=== PATIENT | female | born 1985 | race Caucasian/White ===

== ENCOUNTER → 2017-10-13 | Outpatient (CLI) | payer OTHER | LOC: M LRY 15:02 | DX: O20.0 Threatened abortion (principal) ==

== ENCOUNTER → 2017-11-06 | Outpatient (CLI) | payer OTHER ==
[2017-11-06 17:46] LABS: BASO % 0.4 % (0.0-1.0); EOS # 0.2 10^3/uL (0.0-0.50); EOS % 2.6 % (0.0-3.0); HEMATOCRIT 40.4 % (36.0-47.0); HEMOGLOBIN 13.8 g/dl (12.0-16.0); IMMATURE GRANULOCYTE % 0.3 % (0-0); LYMPH # 1.9 10^3/uL (1.5-4.5); LYMPH % 26.1 % (24.0-44.0); MEAN CORPUSCULAR HEMOGLOBIN 31.2 pg (27.0-33.0); MEAN CORPUSCULAR HGB CONC 34.2 g/dl (32.0-36.5); MEAN CORPUSCULAR VOLUME 91.2 fl (80.0-96.0); MONO # 0.4 10^3/uL (0.0-0.8); MONO % 5.5 % (0.0-5.0); NEUTROPHILS # 4.8 10^3/uL (1.8-7.7); NEUTROPHILS % 65.1 % (36.0-66.0); PLATELET COUNT, AUTOMATED 243 10^3/uL (150-450); RED BLOOD COUNT 4.43 10^6/uL (4.00-5.40); RED CELL DISTRIBUTION WIDTH 12.4 % (11.5-14.5); WHITE BLOOD COUNT 7.3 10^3/uL (4.0-10.0)
[2017-11-06 21:34] LABS: CHLAMYDIA DNA AMPLIFICATION NEGATIVE (NEGATIVE); GC DNA AMPLIFICATION NEGATIVE (NEGATIVE)
[2017-11-08 11:03] LABS: RUBELLA IgG QUALITATIVE IMMUNE (IMMUNE)
[2017-11-08 11:08] LABS: HBsAg Prenatal NEGATIVE (NEGATIVE)
[2017-11-08 11:33] LABS: HIV 1&2 SCREEN CENTAUR NEGATIVE (NEGATIVE)
[2017-11-08 11:46] LABS: HEPATITIS C VIRUS ABY INDEX < 0.0 INDEX (<0.8)
== END ==
LOC: M SMT 15:05
DX: Z34.81 Encounter for supervision of other normal pregnancy, first trimester (principal); Z3A.09 9 weeks gestation of pregnancy
CPT/HCPCS: 86762

== ENCOUNTER → 2018-02-02 | Outpatient (CLI) | payer OTHER | LOC: M SMT 14:44 | DX: Z34.82 Encounter for supervision of other normal pregnancy, second trimester (principal); Z3A.22 22 weeks gestation of pregnancy | CPT/HCPCS: 76811 ==

== ENCOUNTER → 2018-03-26 | Outpatient (CLI) | payer OTHER ==
[2018-03-26 14:04] LABS: BASO % 0.2 % (0.0-1.0); EOS # 0.2 10^3/uL (0.0-0.50); EOS % 1.3 % (0.0-3.0); HEMATOCRIT 38.9 % (36.0-47.0); IMMATURE GRANULOCYTE % 0.5 % (0-3.0); LYMPH % 16.2 % (24.0-44.0); MEAN CORPUSCULAR HEMOGLOBIN 31.9 pg (27.0-33.0); MEAN CORPUSCULAR HGB CONC 33.4 g/dl (32.0-36.5); MEAN CORPUSCULAR VOLUME 95.3 fl (80.0-96.0); MONO # 0.4 10^3/uL (0.0-0.8); MONO % 3.5 % (0.0-5.0); NEUTROPHILS # 9.6 10^3/uL (1.8-7.7); NEUTROPHILS % 78.3 % (36.0-66.0); PLATELET COUNT, AUTOMATED 239 10^3/uL (150-450); RED BLOOD COUNT 4.08 10^6/uL (4.00-5.40); WHITE BLOOD COUNT 12.2 10^3/uL (4.0-10.0)
[2018-03-26 14:38] LABS: GLUCOSE CHALLENGE TEST 1 HOUR 118 MG/DL (LESS THAN 140)
== END ==
LOC: M SMT 10:04
DX: Z34.82 Encounter for supervision of other normal pregnancy, second trimester (principal); Z3A.00 Weeks of gestation of pregnancy not specified

== ENCOUNTER → 2018-04-12 | Outpatient (CLI) | payer OTHER | LOC: M RAD 11:40 | DX: Z34.82 Encounter for supervision of other normal pregnancy, second trimester (principal) | CPT/HCPCS: 76816 ==

== ENCOUNTER → 2018-05-08 | Outpatient (REF) | payer OTHER | LOC: M LAB REF 17:42 | DX: Z34.83 Encounter for supervision of other normal pregnancy, third trimester (principal) ==

== ENCOUNTER 2018-06-06 11:31 | Inpatient (IN) | payer OTHER ==
[2018-06-06 13:01] LABS: HEMATOCRIT 43.6 % (36.0-47.0); HEMOGLOBIN 14.5 g/dl (12.0-15.5); MEAN CORPUSCULAR HEMOGLOBIN 33.6 pg (27.0-33.0); MEAN CORPUSCULAR HGB CONC 33.3 g/dl (32.0-36.5); MEAN CORPUSCULAR VOLUME 101.2 fl (80.0-96.0); PLATELET COUNT, AUTOMATED 299 10^3/uL (150-450); RED BLOOD COUNT 4.31 10^6/uL (4.00-5.40); RED CELL DISTRIBUTION WIDTH 13.2 % (11.5-14.5); WHITE BLOOD COUNT 14.6 10^3/uL (4.0-10.0)
[2018-06-06 13:31] LABS: HEMATOCRIT 41.7 % (36.0-47.0); HEMOGLOBIN 14.4 g/dl (12.0-15.5); MEAN CORPUSCULAR HEMOGLOBIN 31.9 pg (27.0-33.0); MEAN CORPUSCULAR HGB CONC 34.5 g/dl (32.0-36.5); MEAN CORPUSCULAR VOLUME 92.5 fl (80.0-96.0); PLATELET COUNT, AUTOMATED 282 10^3/uL (150-450); RED BLOOD COUNT 4.51 10^6/uL (4.00-5.40); RED CELL DISTRIBUTION WIDTH 13.2 % (11.5-14.5); WHITE BLOOD COUNT 15.8 10^3/uL (4.0-10.0)
[2018-06-06] MEDS: LACTATED RINGER'S 1000 ML IV (15:15)
[2018-06-06] MEDS ORDERED: FENTANYL 2MCG/ML ROPIVACAINE 0.2% IN 0.9% NACL 200ML IVBAG As Ordered (15:22)
[2018-06-06] MEDS: LR 1,000 ML IV ×3 (16:08→21:33)
[2018-06-06] MEDS ORDERED: EPIDURAL/PCA KEYS XX (16:45)
[2018-06-06] MEDS ORDERED: NALOXONE INJ 0.4 MG/1 ML VIAL (J2310) IV (16:45)
[2018-06-06] MEDS ORDERED: REFRIGERATOR IV KEYS XX (16:45)
[2018-06-06] MEDS ORDERED: ONDANSETRON 4MG/2ML VIAL (J2405) IV (16:45)
[2018-06-06] MEDS ORDERED: EPIDURAL COMMENT XX (16:45)
[2018-06-06] MEDS ORDERED: FENTANYL/ROPIVACAINE/NACL BAG 200 ML EPIDURAL (16:45)
[2018-06-06] MEDS ORDERED: LACTATED RINGER'S 1000 ML IV (16:45)
[2018-06-06] MEDS ORDERED: diphenhydrAMINE INJ 50MG/ML VIAL (J1200) IV (16:45)
[2018-06-06] MEDS: ePHEDrine SULFATE 25 MG/5 ML(5MG/ML) SYRINGE IV ×3 (17:16→18:01)
[2018-06-06] MEDS ORDERED: OXYTOCIN DRIP 30 UNITS in APPROPRIATE DILUENT 1 EA IV (19:45)
[2018-06-06] MEDS: OXYTOCIN DRIP 30 UNITS in APPROPRIATE DILUENT 1 EA IV (23:51)
[2018-06-07] MEDS ORDERED: MEASLES,MUMPS,RUBELLA VACCINE INJ (MMR-II) (90707) SC (00:15)
[2018-06-07] MEDS ORDERED: METHYLERGONOVINE MALEATE 0.2 MG TAB PO (00:15)
[2018-06-07] MEDS ORDERED: ANUSOL HC CREAM 30GM TOP (00:15)
[2018-06-07] MEDS ORDERED: RHOGAM 300 MCG (1500 IU) INJ (J2790) IM (00:15)
[2018-06-07] MEDS ORDERED: DIBUCAINE 1% OINTMENT 30GM TOP (00:15)
[2018-06-07] MEDS ORDERED: PROMETHAZINE 25 MG TAB PO (00:15)
[2018-06-07] MEDS ORDERED: ONDANSETRON 4MG/2ML VIAL (J2405) IV (00:15)
[2018-06-07] MEDS ORDERED: MOM 30ML SUSPENSION UDC PO (00:15)
[2018-06-07] MEDS: PRENATAL VITAMINS CHEWABLE TABLET PO (09:00)
[2018-06-07] MEDS: IBUPROFEN 800 MG TAB PO ×2 (09:36→20:50)
[2018-06-07] MEDS: INFLUENZA QUADRIVALENT PF VACCINE 0.5ML SYRINGE (90686) IM (09:37)
[2018-06-07] MEDS: ACETAMINOPHEN 500 MG TAB PO (15:29)
[2018-06-08] MEDS: IBUPROFEN 800 MG TAB PO (08:00)
[2018-06-08] MEDS: PRENATAL VITAMINS CHEWABLE TABLET PO (08:00)
[2018-06-08] MEDS: DOCUSATE SODIUM 100 MG CAP PO (08:12)
== END 2018-06-08 12:45 | disposition home or self-care (01) | DRG 775 ==
LOC: M LDO 11:31 → M OBS 06-07 02:39 → M LDI 12:21
PROC: 10E0XZZ Delivery of Products of Conception, External Approach (ICD-10-PCS; principal; 2018-06-06)
DX: O80 Encounter for full-term uncomplicated delivery (principal); Z37.0 Single live birth; Z3A.39 39 weeks gestation of pregnancy

== ENCOUNTER → 2018-11-06 | Outpatient (REF) | payer OTHER ==
[~2018-11-06] MED LIST: IBUP-1022 PO; MAPA500T2 PO; PRENTAB9 PO
== END ==
LOC: M LAB REF 09:38
PROVIDERS: ATTEND Obstetrics & Gynecology
DX: Z12.4 Encounter for screening for malignant neoplasm of cervix (principal); Z11.51 Encounter for screening for human papillomavirus (HPV)
CPT/HCPCS: 87624; G0123

== ENCOUNTER → 2019-11-08 | Outpatient (REF) | payer OTHER | LOC: M SFHCWAGY 16:54 | PROVIDERS: ATTEND Obstetrics & Gynecology | DX: Z12.4 Encounter for screening for malignant neoplasm of cervix (principal) | CPT/HCPCS: 87624; G0123 ==

== ENCOUNTER → 2019-12-13 | Outpatient (REF) | payer OTHER | LOC: M SFHCWAGY 17:14 | PROVIDERS: ATTEND Obstetrics & Gynecology | DX: R87.610 Atypical squamous cells of undetermined significance on cytologic smear of cervix (ASC-US) (principal) ==

== ENCOUNTER → 2019-12-30 | Outpatient (REF) | payer OTHER | LOC: M SFHCWAGY 13:48 | PROVIDERS: ATTEND Obstetrics & Gynecology | DX: R87.613 High grade squamous intraepithelial lesion on cytologic smear of cervix (HGSIL) (principal) ==

== ENCOUNTER → 2020-11-10 | Outpatient (REF) | payer OTHER | LOC: M SFHCWAGY 17:17 | PROVIDERS: ATTEND Obstetrics & Gynecology | DX: Z01.419 Encounter for gynecological examination (general) (routine) without abnormal findings (principal) | CPT/HCPCS: 87624; G0123 ==

== ENCOUNTER → 2022-03-09 | Outpatient (CLI) | payer OTHER ==
[2022-03-09 15:52] LABS: BASO % 0.4 % (0.0-1.0); EOS # 0.1 10^3/uL (0.0-0.5); EOS % 1.1 % (0.0-3.0); HEMATOCRIT 38.5 % (36.0-47.0); HEMOGLOBIN 12.9 g/dl (12.0-15.5); LYMPH # 1.6 10^3/uL (1.5-5.0); LYMPH % 20.2 % (24.0-44.0); MEAN CORPUSCULAR HEMOGLOBIN 32.3 pg (27.0-33.0); MEAN CORPUSCULAR HGB CONC 33.5 g/dl (32.0-36.5); MEAN CORPUSCULAR VOLUME 96.5 fl (80.0-96.0); MONO # 0.5 10^3/uL (0.0-0.8); MONO % 5.9 % (2.0-8.0); NEUTROPHILS # 5.8 10^3/uL (1.5-8.5); NEUTROPHILS % 72.2 % (36.0-66.0); PLATELET COUNT, AUTOMATED 219 10^3/uL (150-450); RED BLOOD COUNT 3.99 10^6/uL (4.00-5.40)
[2022-03-09 17:01] LABS: HEPATITIS C VIRUS ABY INDEX 0.1 INDEX (<0.8); HIV 1&2 SCREEN CENTAUR NEGATIVE (NEGATIVE)
[2022-03-10 01:46] LABS: GC DNA AMPLIFICATION NEGATIVE (NEGATIVE)
== END ==
LOC: M PLALAB 13:46
PROVIDERS: ATTEND Obstetrics & Gynecology
DX: Z34.90 Encounter for supervision of normal pregnancy, unspecified, unspecified trimester (principal)

== ENCOUNTER → 2022-03-11 | Outpatient (CLI) | payer OTHER | LOC: M WHC 13:29 | PROVIDERS: ATTEND Obstetrics & Gynecology | DX: O34.41 Maternal care for other abnormalities of cervix, first trimester (principal) ==

== ENCOUNTER → 2022-06-13 | Outpatient (CLI) | payer OTHER | LOC: M WHC 07:03 | PROVIDERS: ATTEND Specialist | DX: Z34.82 Encounter for supervision of other normal pregnancy, second trimester (principal); Z3A.21 21 weeks gestation of pregnancy ==

== ENCOUNTER → 2022-06-30 | Outpatient (CLI) | payer OTHER ==
[2022-06-30 11:01] LABS: HEMATOCRIT 41.5 % (36.0-47.0); HEMOGLOBIN 13.6 g/dl (12.0-15.5); MEAN CORPUSCULAR HEMOGLOBIN 32.1 pg (27.0-33.0); MEAN CORPUSCULAR HGB CONC 32.8 g/dl (32.0-36.5); MEAN CORPUSCULAR VOLUME 97.9 fl (80.0-96.0); PLATELET COUNT, AUTOMATED 198 10^3/uL (150-450); RED BLOOD COUNT 4.24 10^6/uL (4.00-5.40); WHITE BLOOD COUNT 8.9 10^3/uL (4.0-10.0)
[2022-06-30 12:37] LABS: GC DNA AMPLIFICATION NEGATIVE (NEGATIVE)
== END ==
LOC: M PLALAB 07:37
PROVIDERS: ATTEND Specialist
DX: Z34.82 Encounter for supervision of other normal pregnancy, second trimester (principal)

== ENCOUNTER → 2022-07-07 | Outpatient (CLI) | payer OTHER | LOC: M WHC 06:55 | PROVIDERS: ATTEND Obstetrics & Gynecology | DX: Z36.2 Encounter for other antenatal screening follow-up (principal); Z3A.25 25 weeks gestation of pregnancy ==

== ENCOUNTER → 2022-07-18 | Outpatient (CLI) | payer OTHER | LOC: M WHC 13:47 | PROVIDERS: ATTEND Obstetrics & Gynecology | DX: O36.5990 Maternal care for other known or suspected poor fetal growth, unspecified trimester, not applicable or unspecified (principal); O32.1XX0 Maternal care for breech presentation, not applicable or unspecified; Z3A.00 Weeks of gestation of pregnancy not specified ==

== ENCOUNTER → 2022-07-25 | Outpatient (CLI) | payer OTHER | LOC: M WHC 15:26 | PROVIDERS: ATTEND Obstetrics & Gynecology | DX: O36.5992 Maternal care for other known or suspected poor fetal growth, unspecified trimester, fetus 2 (principal); Z3A.27 27 weeks gestation of pregnancy ==

== ENCOUNTER 2022-07-30 13:31 | Outpatient (CLI) | payer OTHER ==
[~2022-07-30] VITALS: Ht 162.6 cm; Wt 73.5 kg
[2022-07-30 13:40] VITALS: BP 138/72
[2022-07-30] MEDS ORDERED: BETAMETHASONE SOLUSPAN 6MG/ML 5ML VIAL (J0702 PER 3MG) IM SCH (14:15)
== END 2022-07-30 14:29 | disposition home or self-care (01) ==
LOC: M LDO 13:31
PROVIDERS: ATTEND Obstetrics & Gynecology
DX: O36.5930 Maternal care for other known or suspected poor fetal growth, third trimester, not applicable or unspecified (principal); Z3A.29 29 weeks gestation of pregnancy
CPT/HCPCS: 59025; 96372; G0463; J0702

== ENCOUNTER 2022-07-31 14:03 | Outpatient (CLI) | payer OTHER ==
[~2022-07-31] VITALS: Ht 162.6 cm; Wt 72.7 kg
[2022-07-31 14:16] VITALS: BP 122/79
[2022-07-31] MEDS ORDERED: BETAMETHASONE SOLUSPAN 6MG/ML 5ML VIAL (J0702 PER 3MG) IM ONE (14:30)
== END 2022-07-31 16:00 | disposition home or self-care (01) ==
LOC: M LDO 14:03
PROVIDERS: ATTEND Obstetrics & Gynecology
DX: O36.5920 Maternal care for other known or suspected poor fetal growth, second trimester, not applicable or unspecified (principal); Z3A.29 29 weeks gestation of pregnancy
CPT/HCPCS: 96372; G0463; J0702

== ENCOUNTER → 2022-08-01 | Outpatient (CLI) | payer OTHER | LOC: M WHC 15:21 | PROVIDERS: ATTEND Obstetrics & Gynecology | DX: O36.5993 Maternal care for other known or suspected poor fetal growth, unspecified trimester, fetus 3 (principal); Z3A.30 30 weeks gestation of pregnancy ==

== ENCOUNTER → 2022-08-08 | Outpatient (CLI) | payer OTHER | LOC: M WHC 15:22 | PROVIDERS: ATTEND Obstetrics & Gynecology | DX: O36.5993 Maternal care for other known or suspected poor fetal growth, unspecified trimester, fetus 3 (principal); Z3A.31 31 weeks gestation of pregnancy ==

== ENCOUNTER → 2022-08-15 | Outpatient (CLI) | payer OTHER | LOC: M WHC 15:23 | PROVIDERS: ATTEND Obstetrics & Gynecology | DX: O36.5990 Maternal care for other known or suspected poor fetal growth, unspecified trimester, not applicable or unspecified (principal) ==

== ENCOUNTER → 2022-08-22 | Outpatient (CLI) | payer OTHER | LOC: M WHC 15:23 | PROVIDERS: ATTEND Obstetrics & Gynecology | DX: O36.5993 Maternal care for other known or suspected poor fetal growth, unspecified trimester, fetus 3 (principal); Z3A.31 31 weeks gestation of pregnancy ==

== ENCOUNTER → 2022-08-29 | Outpatient (CLI) | payer OTHER | LOC: M WHC 15:24 | PROVIDERS: ATTEND Obstetrics & Gynecology | DX: O36.5990 Maternal care for other known or suspected poor fetal growth, unspecified trimester, not applicable or unspecified (principal); Z3A.34 34 weeks gestation of pregnancy ==

== ENCOUNTER → 2022-09-05 | Outpatient (CLI) | payer OTHER | LOC: M WHC 07:00 | PROVIDERS: ATTEND Obstetrics & Gynecology | DX: O36.5990 Maternal care for other known or suspected poor fetal growth, unspecified trimester, not applicable or unspecified (principal); Z3A.35 35 weeks gestation of pregnancy ==

== ENCOUNTER → 2022-09-06 | Outpatient (REF) | payer OTHER | LOC: M PLALAB 14:55 | PROVIDERS: ATTEND Obstetrics & Gynecology | DX: Z34.93 Encounter for supervision of normal pregnancy, unspecified, third trimester (principal) ==

== ENCOUNTER → 2022-09-12 | Outpatient (CLI) | payer OTHER | LOC: M WHC 15:17 | PROVIDERS: ATTEND Obstetrics & Gynecology | DX: O36.5993 Maternal care for other known or suspected poor fetal growth, unspecified trimester, fetus 3 (principal); Z3A.36 36 weeks gestation of pregnancy ==

== ENCOUNTER 2022-09-19 21:31 | Inpatient (IN) | payer OTHER ==
[~2022-09-19] VITALS: Ht 162.6 cm; Wt 75.5 kg
[2022-09-19 22:32] VITALS: BP 136/78
[2022-09-19] MEDS ORDERED: LACTATED RINGER'S 1000 ML IV STA (23:04)
[2022-09-19] MEDS ORDERED: OXYTOCIN DRIP 30 UNITS in IV 1 EA IV PRN (23:05)
[2022-09-19] MEDS ORDERED: miSOPROStol 50MCG 1/2 TABLET PO ONE (23:05)
[2022-09-19] MEDS ORDERED: LIDOCAINE 1% MDV 20ML VIAL INFIL PRN (23:05)
[2022-09-19] MEDS ORDERED: METHYLERGONOVINE MALEATE 0.2 MG/ML VIAL (J2210) IM PRN (23:05)
[2022-09-19] MEDS ORDERED: CARBOPROST TROMETHAMINE 250 MCG/ML AMP IM PRN (23:05)
[2022-09-19] MEDS ORDERED: OXYTOCIN INJ 10UNITS/ML 1ML VIAL IM PRN (23:05)
[2022-09-19] MEDS ORDERED: TRANEXAMIC ACID INJection 1,000 MG in NS 100 ML IV PRN (23:05)
[2022-09-19 23:25] VITALS: BP 132/75
[2022-09-19 23:35] LABS: HEMATOCRIT 38.8 % (36.0-47.0); HEMOGLOBIN 13.3 g/dl (12.0-15.5); MEAN CORPUSCULAR HEMOGLOBIN 32.2 pg (27.0-33.0); MEAN CORPUSCULAR HGB CONC 34.3 g/dl (32.0-36.5); MEAN CORPUSCULAR VOLUME 93.9 fl (80.0-96.0); PLATELET COUNT, AUTOMATED 222 10^3/uL (150-450); RED BLOOD COUNT 4.13 10^6/uL (4.00-5.40); WHITE BLOOD COUNT 10.2 10^3/uL (4.0-10.0)
[2022-09-20] VITALS (33 sets, daily range): BP systolic 92–136; BP diastolic 50–84
[2022-09-20] MEDS ORDERED: OXYTOCIN DRIP 30 UNITS in IV 1 EA IV SCH (02:55)
[2022-09-20] MEDS: LR 1,000 ML IV SCH ×3 (03:53→17:33)
[2022-09-20] MEDS ORDERED: ONDANSETRON 4MG 2ML VIAL IV ONE (12:10)
[2022-09-20] MEDS ORDERED: HOME MED LIST COMPLETE! XX SCH (12:20)
[2022-09-20] MEDS ORDERED: PROMETHAZINE 25MG/ML 1ML VIAL IV ONE (12:25)
[2022-09-20] MEDS ORDERED: BUTORPHANOL 2 MG/ML 1ML VIAL IV ONE ×2 (12:25→17:45)
[2022-09-20] MEDS ORDERED: ONDANSETRON 4MG 2ML VIAL IV SCH (17:45)
[2022-09-20] MEDS ORDERED: PROMETHAZINE 25MG/ML 1ML VIAL IV PRN (17:45)
[2022-09-20] MEDS ORDERED: ACETAMINOPHEN TAB 650MG DOSE (2X325MG) PO PRN (18:35)
[2022-09-20] MEDS ORDERED: RHOGAM 300MCG (1500IU) INJ IM SCH (18:35)
[2022-09-20] MEDS ORDERED: ACETAMINOPHEN 500 MG TAB PO PRN (18:35)
[2022-09-20] MEDS ORDERED: IBUPROFEN 600MG TAB PO PRN (18:35)
[2022-09-20] MEDS ORDERED: DIBUCAINE 1% OINTMENT 30GM TOP PRN (18:35)
[2022-09-20] MEDS ORDERED: DOCUSATE SODIUM 100MG CAPSULE PO PRN (18:35)
[2022-09-21 06:29] VITALS: BP 95/53
[2022-09-21] MEDS: IBUPROFEN 800 MG TAB PO PRN ×2 (06:36→22:44)
[2022-09-21] MEDS: PRENATAL VITAMINS CHEWABLE TABLET PO SCH (09:00)
[2022-09-21 18:00] VITALS: BP 101/59
[2022-09-22 06:00] VITALS: BP 105/56
[2022-09-22] MEDS ORDERED: MEASLES,MUMPS,RUBELLA VACCINE INJ (MMR-II) SC.IMMUN ONE (09:00)
[2022-09-22] MEDS: PRENATAL VITAMINS CHEWABLE TABLET PO SCH (09:05)
== END 2022-09-22 14:25 | disposition home or self-care (01) | DRG 807 ==
LOC: M LDI 21:31 → M OBS 09-20 20:34
PROVIDERS: ADMIT Advanced Practice Midwife; ATTEND Obstetrics & Gynecology
PROC: 3E0P7GC Introduction of Other Therapeutic Substance into Female Reproductive, Via Natural or Artificial Opening (ICD-10-PCS; 2022-09-19)
PROC: 10E0XZZ Delivery of Products of Conception, External Approach (ICD-10-PCS; principal; 2022-09-20)
DX: O36.5930 Maternal care for other known or suspected poor fetal growth, third trimester, not applicable or unspecified (principal); Z37.0 Single live birth; Z3A.37 37 weeks gestation of pregnancy; O09.523 Supervision of elderly multigravida, third trimester

== ENCOUNTER → 2022-09-19 | Outpatient (CLI) | payer OTHER | LOC: M WHC 15:28 | PROVIDERS: ATTEND Obstetrics & Gynecology | DX: O36.5993 Maternal care for other known or suspected poor fetal growth, unspecified trimester, fetus 3 (principal); Z3A.34 34 weeks gestation of pregnancy ==

== ENCOUNTER → 2023-02-14 | Outpatient (REF) | payer OTHER | LOC: M SFHCWAGY 10:16 | PROVIDERS: ATTEND Obstetrics & Gynecology | DX: Z12.4 Encounter for screening for malignant neoplasm of cervix (principal); R87.610 Atypical squamous cells of undetermined significance on cytologic smear of cervix (ASC-US) | CPT/HCPCS: 87624; G0123 ==

== ENCOUNTER → 2024-04-22 | Outpatient (REF) | payer OTHER | LOC: M PLALAB 10:53 | PROVIDERS: ATTEND Obstetrics & Gynecology | DX: Z12.4 Encounter for screening for malignant neoplasm of cervix (principal); B37.9 Candidiasis, unspecified; R87.619 Unspecified abnormal cytological findings in specimens from cervix uteri | CPT/HCPCS: 87624; G0123 ==

== ENCOUNTER → 2025-04-23 | Outpatient (REF) | payer OTHER ==
[2025-04-25 14:22] LABS: HPV APTIMA Not Detected (Not Detected)
== END ==
LOC: M SFHCWAGY 13:21
PROVIDERS: ATTEND Obstetrics & Gynecology
DX: Z01.419 Encounter for gynecological examination (general) (routine) without abnormal findings (principal)
CPT/HCPCS: 87624; G0123